=== PATIENT | female | born 1980 | race Caucasian/White ===

== ENCOUNTER 2023-04-07 10:08 | Day surgery (SDC) | payer MEDICAID ==
[~2023-04-07] VITALS: Ht 157.5 cm; Wt 94.3 kg
[2023-04-07 10:35] LABS: HCG,QUAL RESULT NEGATIVE (NEGATIVE)
[2023-04-07] MEDS ORDERED: SEVOFLURANE 15 MIN GAS INH ONE (11:50)
[2023-04-07] MEDS ORDERED: fentaNYL CITRATE/PF 100 MCG/2 ML AMP ONE (11:50)
[2023-04-07] MEDS ORDERED: ONDANSETRON HCL 4 MG/2 ML VIAL ONE (11:50)
[2023-04-07] MEDS ORDERED: LR 1,000 ML IV.SOLN IV ONE (11:50)
[2023-04-07] MEDS ORDERED: KETOROLAC TROMETHAMINE 30 MG VIAL ONE (11:50)
[2023-04-07] MEDS ORDERED: MIDAZOLAM HCL 50 mg/10 mL INJ. VIAL ONE (11:50)
[2023-04-07] MEDS ORDERED: METOCLOPRAMIDE HCL 10 MG/2 ML VIAL ONE (11:50)
[2023-04-07] MEDS ORDERED: NORMAL SALINE 10 ML VIAL ONE (11:50)
[2023-04-07] MEDS ORDERED: DEXAMETHASONE SOD PHOSPHATE 4 MG/ML VIAL ONE (11:50)
[2023-04-07] MEDS ORDERED: NS IRRIG SOLN 1000 ML IR ONE (11:50)
[2023-04-07] MEDS ORDERED: PROPOFOL 200MG/ 20ML VIAL (DIPRIVAN) IV ONE (11:50)
[2023-04-07] MEDS ORDERED: NALOXONE HCL 0.4 MG/ML AMP (NARCAN) IVP PRN (12:30)
[2023-04-07] MEDS ORDERED: ONDANSETRON HCL 4 MG/2 ML VIAL IVP PRN (12:30)
[2023-04-07] MEDS ORDERED: MEPERIDINE HCL/PF 25 MG/ML DISP.SYRIN IVP PRN (12:30)
[2023-04-07] MEDS ORDERED: LR 1,000 ML IV SCH (12:30)
[2023-04-07] MEDS ORDERED: KETOROLAC TROMETHAMINE 30 MG VIAL IVP PRN (12:30)
[2023-04-07] MEDS ORDERED: HYDROmorphone 1 MG/ML INJ. CARTRIDGE IVP PRN (12:30)
[2023-04-07] MEDS ORDERED: HYDROmorphone 1 MG/ML INJ. CARTRIDGE ONE (13:34)
[2023-04-07] MEDS: HYDROmorphone 1 MG/ML INJ. CARTRIDGE ONE ×2 (15:20→15:35)
[2023-04-07 15:31] VITALS: BP_SYST 105
[2023-04-07] MEDS ORDERED: HYDROcodone/ACETAMIN 5-325 MG TAB (NORCO/ VICODIN) ONE (17:09)
== END 2023-04-07 17:50 | disposition home or self-care (01) ==
LOC: SDS 10:08 → SMU 10:10 → SDS 17:50
PROVIDERS: ATTEND Obstetrics & Gynecology
DX: N92.0 Excessive and frequent menstruation with regular cycle (principal); E11.9 Type 2 diabetes mellitus without complications; M06.9 Rheumatoid arthritis, unspecified; Z88.0 Allergy status to penicillin; Z91.011 Allergy to milk products; Z79.899 Other long term (current) drug therapy
CPT/HCPCS: 87081; 58563; 84703; 82962; J1100; J1885; J2765; J2405; J2704; J3010; J1170; J7120